=== PATIENT | female | born 1955 | race Caucasian/White ===

== ENCOUNTER 2016-12-25 08:43 | Emergency (ER) | payer MEDICARE ==
[~2016-12-25] VITALS: Ht 154.9 cm; Wt 53.0 kg
[~2016-12-25 08:43] MED LIST: ASPI-614 PO; CEFD300C37 PO; CIPR250T27 PO; CLOP75TA PO; DOXY50CA42 PO; FLUO10CA7 PO; LORA1TAB PO; LOSA100T6 PO; MULT-717 PO; POTA20TA14 PO; PRED10TA PO; SIMV5TAB5 PO; SUCR1ORA11 PO; THIA100T6 PO
[2016-12-25 09:58] LABS: IS PT STATUS REG ER OR PRE ER? YES
[2016-12-25 10:51] VITALS: BP 126/72
== END 2016-12-25 12:24 | disposition home or self-care (01) ==
LOC: ED 09:29
DX: I63.9 Cerebral infarction, unspecified (principal); J44.1 Chronic obstructive pulmonary disease with (acute) exacerbation; I10 Essential (primary) hypertension; E78.5 Hyperlipidemia, unspecified
CPT/HCPCS: 36415; 70450; 70551; 80047; 82962; 83880; 84484; 85025; 85610; 85730; 93005; 99285

== ENCOUNTER 2018-01-10 09:27 | Inpatient (IN) | payer OTHER ==
[~2018-01-10] VITALS: Ht 154.9 cm; Wt 49.3 kg
[~2018-01-10 09:27] MED LIST changes: +ASPI-496 PO; +CHOL20002 PO; +MELO15TA24 PO; +OMEP-110 PO
[2018-01-10] MEDS ORDERED: ASPI-496 PO (09:56)
[2018-01-10] MEDS ORDERED: MELO15TA24 PO (09:56)
[2018-01-10] MEDS ORDERED: CLOP75TA PO (09:56)
[2018-01-10] MEDS ORDERED: ONDANSETRON ODT 4 MG PO ONE (10:00)
[2018-01-10] MEDS ORDERED: SODIUM CHLORIDE FLUSH 10ML SYR IVF ONE (10:00)
[2018-01-10] MEDS ORDERED: MORPHINE SULFATE 4 MG/ML, 1ML IVPush PRN (10:00)
[2018-01-10 10:20] LABS: BASOPHILS # (AUTO) 0.04 x10^3/uL (0-0.1); BASOPHILS % (AUTO) 1 % (0-1); EOSINOPHILS # (AUTO) 0.02 x10^3/uL (0-0.4); EOSINOPHILS % (AUTO) 1 % (1-7); LYMPHOCYTES # (AUTO) 1.56 x10^3/uL (1-3.4); LYMPHOCYTES % (AUTO) 33 % (22-44); MD NO; MEAN CORPUSCULAR HEMOGLOBIN 37.5 pg (27.0-34.8); MEAN CORPUSCULAR HGB CONC 34.6 g/dL (32.4-35.8); MEAN CORPUSCULAR VOLUME 108.4 fL (80-100); MEAN PLATELET VOLUME 6.3 fL (7.4-10.4); MONOCYTES # (AUTO) 0.71 x10^3/uL (0.2-0.8); MONOCYTES % (AUTO) 15 % (2-9); NEUTROPHILS # (AUTO) 2.43 x10^3/uL (1.8-6.8); NEUTROPHILS % (AUTO) 51 % (42-75); PLATELET COUNT 333 x10^3/uL (130-400); RED BLOOD COUNT 4.08 x10^6/uL (3.82-5.3); RED CELL DISTRIBUTION WIDTH 12.6 % (9.6-15.2)
[2018-01-10] MEDS ORDERED: ONDANSETRON ODT 4 MG ONE (10:23)
[2018-01-10] MEDS ORDERED: MORPHINE SULFATE 4 MG/ML, 1ML ONE (10:24)
[2018-01-10 10:36] LABS: INTERNATIONAL NORMALIZED RATIO 0.96 (0.93-1.1)
[2018-01-10 10:41] LABS: ALBUMIN 3.9 g/dL (3.4-5.0); ANION GAP 8 mmol/L (5-15); CHLORIDE 97 mmol/L (98-107)
[2018-01-10] MEDS ORDERED: OMNIPAQUE 350 MG/ML, 100ML BOTTLE ONE (10:43)
[2018-01-10 10:44] LABS: ALANINE AMINOTRANSFERASE 47 U/L (12-78); ALKALINE PHOSPHATASE 93 U/L (45-117); BILIRUBIN,TOTAL 0.6 mg/dL (0.2-1.0); CREATININE 0.67 mg/dL (0.55-1.02); TOTAL PROTEIN 7.1 g/dL (6.4-8.2)
[2018-01-10] MEDS ORDERED: CLOPIDOGREL 75 MG TABLET PO ONE (12:00)
[2018-01-10] MEDS ORDERED: ONDANSETRON ODT 4 MG PO PRN (13:00)
[2018-01-10] MEDS ORDERED: POLYETHYLENE GLYCOL 17 GM PACKET PO PRN (13:00)
[2018-01-10] MEDS ORDERED: OMEPRAZOLE 20 MG CAPSULE.DR PO SCH (13:00)
[2018-01-10] MEDS ORDERED: ENALAPRILAT 1.25 MG/ML, 2ML IV PRN (13:00)
[2018-01-10] MEDS ORDERED: DOCUSATE 100 MG CAPSULE PO PRN (13:00)
[2018-01-10] MEDS ORDERED: BISACODYL 10 MG SUPP PR PRN (13:00)
[2018-01-10 13:10] VITALS: BP 104/69
[2018-01-10] MEDS: NICOTINE 7 MG/24 HR PATCH.TD24 TD SCH (13:25)
[2018-01-10] MEDS: LORazepam 1MG TABLET PO PRN ×2 (13:25→21:41)
[2018-01-10 13:31] LABS: TROPONIN I < 0.015 ng/mL (0.000-0.045)
[2018-01-10 14:00] VITALS: BP 104/69
[2018-01-10 19:11] VITALS: BP 119/76
[2018-01-10] MEDS: ATORVASTATIN 40 MG TABLET PO SCH (20:35)
[2018-01-11 02:10] VITALS: BP 106/65
[2018-01-11 05:05] LABS: BASOPHILS # (AUTO) 0.03 x10^3/uL (0-0.1); BASOPHILS % (AUTO) 1 % (0-1); EOSINOPHILS # (AUTO) 0.07 x10^3/uL (0-0.4); EOSINOPHILS % (AUTO) 2 % (1-7); LYMPHOCYTES # (AUTO) 1.41 x10^3/uL (1-3.4); LYMPHOCYTES % (AUTO) 36 % (22-44); MD NO; MEAN CORPUSCULAR HGB CONC 34.5 g/dL (32.4-35.8); MEAN PLATELET VOLUME 6.4 fL (7.4-10.4); MONOCYTES # (AUTO) 0.49 x10^3/uL (0.2-0.8); MONOCYTES % (AUTO) 12 % (2-9); NEUTROPHILS # (AUTO) 1.97 x10^3/uL (1.8-6.8); NEUTROPHILS % (AUTO) 50 % (42-75); PLATELET COUNT 276 x10^3/uL (130-400); RED BLOOD COUNT 3.67 x10^6/uL (3.82-5.3); RED CELL DISTRIBUTION WIDTH 12.6 % (9.6-15.2)
[2018-01-11 05:16] LABS: CHLORIDE 102 mmol/L (98-107)
[2018-01-11 05:17] LABS: ANION GAP 7 mmol/L (5-15); CALCIUM 8.8 mg/dL (8.5-10.1); CHOLESTEROL, TOTAL 150 mg/dL (140-239); TRIGLYCERIDES 64 mg/dL (50-200); VLDL CHOLESTEROL 13 mg/dL (0-25)
[2018-01-11 05:43] LABS: CHOL/HDL RATIO 1.6; HDL CHOL % 61 % (28-40); HDL CHOLESTEROL (DIRECT) 92 mg/dL (40-60); LDL CHOLESTEROL,CALCULATED 45 mg/dL (54-169); LDL/HDL RATIO 0.5 (0.5-3.0)
[2018-01-11 05:44] LABS: FOLATE LEVEL > 20.0 ng/mL (3.1-17.5)
[2018-01-11 07:05] VITALS: BP 111/70
[2018-01-11] MEDS: OMEPRAZOLE 20 MG CAPSULE.DR PO SCH (08:25)
[2018-01-11] MEDS: FLUOXETINE 10 MG CAP PO SCH (08:25)
[2018-01-11] MEDS: MULTIVITAMIN 1 TABLET PO SCH (08:25)
[2018-01-11] MEDS: CHOLECALCIFEROL 1,000 UNIT TABLET PO SCH (08:25)
[2018-01-11] MEDS: ASPIRIN 81 MG TABLET CHEW PO/NG SCH (08:26)
[2018-01-11] MEDS: CLOPIDOGREL 75 MG TABLET PO SCH (08:26)
[2018-01-11] MEDS ORDERED: POTASSIUM CHLORIDE 20 MEQ TAB.ER.PRT PO ONE (08:30)
[2018-01-11] MEDS: ACETAMINOPHEN 325 MG TABLET PO PRN (10:34)
[2018-01-11] MEDS: LORazepam 1MG TABLET PO PRN ×2 (10:35→20:11)
[2018-01-11] MEDS: NICOTINE 7 MG/24 HR PATCH.TD24 TD SCH (13:05)
[2018-01-11 13:11] VITALS: BP_SYST 148; BP_SYST 93; BP_DIAS 58; BP_DIAS 91
[2018-01-11 19:57] VITALS: BP 112/71
[2018-01-11] MEDS: ATORVASTATIN 40 MG TABLET PO SCH (20:10)
[2018-01-12 02:30] VITALS: BP 119/72
[2018-01-12 05:02] LABS: BASOPHILS # (AUTO) 0.02 x10^3/uL (0-0.1); BASOPHILS % (AUTO) 1 % (0-1); EOSINOPHILS # (AUTO) 0.08 x10^3/uL (0-0.4); EOSINOPHILS % (AUTO) 2 % (1-7); LYMPHOCYTES # (AUTO) 1.47 x10^3/uL (1-3.4); LYMPHOCYTES % (AUTO) 33 % (22-44); MD NO; MEAN CORPUSCULAR HEMOGLOBIN 37.5 pg (27.0-34.8); MEAN CORPUSCULAR HGB CONC 34.4 g/dL (32.4-35.8); MEAN CORPUSCULAR VOLUME 109.1 fL (80-100); MEAN PLATELET VOLUME 6.2 fL (7.4-10.4); MONOCYTES # (AUTO) 0.52 x10^3/uL (0.2-0.8); MONOCYTES % (AUTO) 12 % (2-9); NEUTROPHILS # (AUTO) 2.37 x10^3/uL (1.8-6.8); NEUTROPHILS % (AUTO) 53 % (42-75); PLATELET COUNT 283 x10^3/uL (130-400); RED BLOOD COUNT 3.77 x10^6/uL (3.82-5.3); RED CELL DISTRIBUTION WIDTH 12.7 % (9.6-15.2)
[2018-01-12 05:16] LABS: ANION GAP 8 mmol/L (5-15); CALCIUM 8.7 mg/dL (8.5-10.1); CHLORIDE 105 mmol/L (98-107); CREATININE 0.49 mg/dL (0.55-1.02)
[2018-01-12 06:54] VITALS: BP 126/80
[2018-01-12] MEDS: MULTIVITAMIN 1 TABLET PO SCH (10:34)
[2018-01-12] MEDS: FLUOXETINE 10 MG CAP PO SCH (10:34)
[2018-01-12] MEDS: CLOPIDOGREL 75 MG TABLET PO SCH (10:34)
[2018-01-12] MEDS: ASPIRIN 81 MG TABLET CHEW PO/NG SCH (10:34)
[2018-01-12] MEDS: CHOLECALCIFEROL 1,000 UNIT TABLET PO SCH (10:34)
[2018-01-12] MEDS: OMEPRAZOLE 20 MG CAPSULE.DR PO SCH (10:34)
[2018-01-12] MEDS: LORazepam 1MG TABLET PO PRN ×2 (10:43→20:38)
[2018-01-12 13:03] VITALS: BP 125/74
[2018-01-12] MEDS: NICOTINE 7 MG/24 HR PATCH.TD24 TD SCH (15:35)
[2018-01-12 20:00] VITALS: BP 132/79
[2018-01-12] MEDS: ACETAMINOPHEN 325 MG TABLET PO PRN (20:38)
[2018-01-12] MEDS: ATORVASTATIN 40 MG TABLET PO SCH (20:38)
[2018-01-13 04:07] VITALS: BP 151/84
[2018-01-13 07:19] VITALS: BP 135/79
[2018-01-13] MEDS: CLOPIDOGREL 75 MG TABLET PO SCH (09:27)
[2018-01-13] MEDS: CHOLECALCIFEROL 1,000 UNIT TABLET PO SCH (09:27)
[2018-01-13] MEDS: ASPIRIN 81 MG TABLET CHEW PO/NG SCH (09:27)
[2018-01-13] MEDS: MULTIVITAMIN 1 TABLET PO SCH (09:27)
[2018-01-13] MEDS: FLUOXETINE 10 MG CAP PO SCH (09:27)
[2018-01-13] MEDS: OMEPRAZOLE 20 MG CAPSULE.DR PO SCH (09:27)
[2018-01-13] MEDS: LORazepam 1MG TABLET PO PRN ×2 (09:27→20:26)
[2018-01-13] MEDS: NICOTINE 7 MG/24 HR PATCH.TD24 TD SCH (14:30)
[2018-01-13 15:00] VITALS: BP 115/73
[2018-01-13 20:00] VITALS: BP 110/71
[2018-01-13] MEDS: ATORVASTATIN 40 MG TABLET PO SCH (20:26)
[2018-01-14 02:00] VITALS: BP 125/77
[2018-01-14 07:07] VITALS: BP 116/73
[2018-01-14] MEDS: CHOLECALCIFEROL 1,000 UNIT TABLET PO SCH (09:56)
[2018-01-14] MEDS: OMEPRAZOLE 20 MG CAPSULE.DR PO SCH (09:56)
[2018-01-14] MEDS: MULTIVITAMIN 1 TABLET PO SCH (09:56)
[2018-01-14] MEDS: FLUOXETINE 10 MG CAP PO SCH (09:56)
[2018-01-14] MEDS: ASPIRIN 81 MG TABLET CHEW PO/NG SCH (09:56)
[2018-01-14] MEDS: CLOPIDOGREL 75 MG TABLET PO SCH (10:02)
[2018-01-14] MEDS: LORazepam 1MG TABLET PO PRN ×2 (10:02→19:02)
[2018-01-14 14:14] VITALS: BP 143/82
[2018-01-14] MEDS: NICOTINE 7 MG/24 HR PATCH.TD24 TD SCH (14:35)
[2018-01-14 18:53] VITALS: BP 113/72
[2018-01-14] MEDS: ATORVASTATIN 40 MG TABLET PO SCH (20:20)
[2018-01-15 02:33] VITALS: BP 110/67
[2018-01-15] MEDS: ACETAMINOPHEN 325 MG TABLET PO PRN ×2 (04:20→17:42)
[2018-01-15 08:00] VITALS: BP 109/73
[2018-01-15] MEDS: CLOPIDOGREL 75 MG TABLET PO SCH (08:55)
[2018-01-15] MEDS: ASPIRIN 81 MG TABLET CHEW PO/NG SCH (08:55)
[2018-01-15] MEDS: OMEPRAZOLE 20 MG CAPSULE.DR PO SCH (08:56)
[2018-01-15] MEDS: CHOLECALCIFEROL 1,000 UNIT TABLET PO SCH (08:56)
[2018-01-15] MEDS: FLUOXETINE 10 MG CAP PO SCH (08:57)
[2018-01-15] MEDS: MULTIVITAMIN 1 TABLET PO SCH (08:58)
[2018-01-15] MEDS: LORazepam 1MG TABLET PO PRN (08:59)
[2018-01-15] MEDS ORDERED: PAPAVERINE 30 MG/ML, 2ML ONE (12:54)
[2018-01-15] MEDS ORDERED: BUPIVACAINE/PF-EPI 0.5% 1:200K ONE (12:54)
[2018-01-15] MEDS ORDERED: THROMBIN 20,000 UNIT VIAL TP ONE ×2 (12:54→15:58)
[2018-01-15] MEDS ORDERED: HEPARIN 1,000 UNITS/ML, 10ML ONE (12:54)
[2018-01-15] MEDS ORDERED: PROTAMINE SULFATE 10 MG/ML, 5ML ONE (12:54)
[2018-01-15] MEDS ORDERED: BACITRACIN 50,000 UNIT ONE (12:55)
[2018-01-15] MEDS ORDERED: LIDOCAINE-MPF 1%, 5ML ONE (12:55)
[2018-01-15 14:00] VITALS: BP 111/68
[2018-01-15] MEDS ORDERED: FENTANYL PF 250 MCG/5ML ONE (14:41)
[2018-01-15] MEDS ORDERED: LIDOCAINE GEL 2%, 5ML ONE (14:44)
[2018-01-15] MEDS ORDERED: SUCCINYLCHOLINE 20 MG/ML, 10ML ONE (15:14)
[2018-01-15] MEDS ORDERED: PHENYLEPHRINE 10 MG/ML ONE (15:14)
[2018-01-15] MEDS ORDERED: BACITRACIN 50,000 UNIT IRRIG ONE (15:57)
[2018-01-15] MEDS ORDERED: BUPIVACAINE/PF-EPI 0.5% 1:200K INFIL ONE (15:58)
[2018-01-15] MEDS ORDERED: HEPARIN 1,000 UNITS/ML, 10ML IV ONE (15:59)
[2018-01-15] MEDS ORDERED: ACETAMINOPHEN 325 MG TABLET PO PRN (16:30)
[2018-01-15] MEDS ORDERED: PROMETHAZINE 25 MG/ML, 1ML IV PRN (16:30)
[2018-01-15] MEDS ORDERED: ALBUTEROL/IPRATROPIUM 2.5MG/0.5MG, 3 ML NPPB PRN (16:30)
[2018-01-15] MEDS ORDERED: HYDROmorphone 1 MG/ML, 1ML IV PRN (16:30)
[2018-01-15] MEDS ORDERED: MIDAZOLAM 1 MG/ML, 2ML IV PRN (16:30)
[2018-01-15] MEDS ORDERED: hydrALAzine 20 MG/ML, 1ML IV PRN (16:30)
[2018-01-15] MEDS ORDERED: ONDANSETRON 2MG/ML, 2ML IV PRN (16:30)
[2018-01-15] MEDS ORDERED: LABETALOL 5MG/ML, 20ML IV PRN (16:30)
[2018-01-15] MEDS ORDERED: OXYcodone 5 MG/5 ML ORAL.SOL UDC PO PRN (16:30)
[2018-01-15] MEDS ORDERED: ONDANSETRON 2MG/ML, 2ML ONE (16:45)
[2018-01-15] MEDS ORDERED: DEXAMETHASONE 4 MG/ML, 1ML ONE (16:45)
[2018-01-15] MEDS ORDERED: PROPOFOL 10 MG/ML, 20ML ONE (16:45)
[2018-01-15] MEDS ORDERED: CEFAZOLIN 1,000 MG ONE (16:45)
[2018-01-15] MEDS ORDERED: LABETALOL 5MG/ML, 20ML ONE (17:01)
[2018-01-15] MEDS: LABETALOL 5MG/ML, 20ML IV PRN ×2 (17:12→17:23)
[2018-01-15] MEDS ORDERED: FENTANYL PF 100 MCG/2ML ONE (17:38)
[2018-01-15] MEDS ORDERED: OXYcodone 5 MG/5 ML ORAL.SOL UDC ONE (17:38)
[2018-01-15] MEDS ORDERED: ACETAMINOPHEN 650 MG/20.3 ML UDC ONE (17:38)
[2018-01-15] MEDS: FENTANYL PF 100 MCG/2ML IV PRN ×2 (17:44→17:58)
[2018-01-15 19:25] VITALS: BP 150/87
[2018-01-15] MEDS ORDERED: MORPHINE SULFATE 4 MG/ML, 1ML IVPush PRN (21:00)
[2018-01-15] MEDS: ATORVASTATIN 40 MG TABLET PO SCH (21:00)
[2018-01-15] MEDS ORDERED: HYDROcodone/APAP 5/325 TABLET PO PRN (21:00)
[2018-01-16 02:20] VITALS: BP 117/71
[2018-01-16 07:49] VITALS: BP 118/77
[2018-01-16] MEDS: FLUOXETINE 10 MG CAP PO SCH (08:28)
[2018-01-16] MEDS: OMEPRAZOLE 20 MG CAPSULE.DR PO SCH (08:28)
[2018-01-16] MEDS: ASPIRIN 81 MG TABLET CHEW PO/NG SCH (08:28)
[2018-01-16] MEDS: CHOLECALCIFEROL 1,000 UNIT TABLET PO SCH (08:28)
[2018-01-16] MEDS: CLOPIDOGREL 75 MG TABLET PO SCH (08:29)
[2018-01-16] MEDS: MULTIVITAMIN 1 TABLET PO SCH (08:29)
[2018-01-16] MEDS: NICOTINE 7 MG/24 HR PATCH.TD24 TD SCH (08:29)
[2018-01-16] MEDS: LORazepam 1MG TABLET PO PRN (08:29)
[2018-01-16] MEDS ORDERED: MELOXICAM 15 MG TABLET PO SCH (09:00)
[2018-01-16] MEDS ORDERED: LOSARTAN 50MG TABLET PO SCH (09:00)
[2018-01-16] MEDS ORDERED: ASPI-515 PO/NG (13:19)
[2018-01-16] MEDS ORDERED: ATOR40TA78 PO (13:19)
[2018-01-16] MEDS ORDERED: CLOP75TA PO (13:25)
[2018-01-16 14:11] VITALS: BP 124/76
[2018-01-16] MEDS ORDERED: HYDR-3240 PO ×2 (15:27→15:28)
== END 2018-01-16 15:47 | disposition home or self-care (01) | DRG 38 ==
LOC: ED 10:57 → EDIP 11:20 → 4WST 13:05 → DCLOUNGE 01-16 15:08
PROVIDERS: ADMIT Hospitalist; ATTEND Hospitalist
PROC: 03CM0ZZ Extirpation of Matter from Right External Carotid Artery, Open Approach (ICD-10-PCS; 2018-01-15)
PROC: 03CK0ZZ Extirpation of Matter from Right Internal Carotid Artery, Open Approach (ICD-10-PCS; 2018-01-15)
PROC: 03CH0ZZ Extirpation of Matter from Right Common Carotid Artery, Open Approach (ICD-10-PCS; principal; 2018-01-15 16:30)
DX: I65.23 Occlusion and stenosis of bilateral carotid arteries (principal); E87.1 Hypo-osmolality and hyponatremia; I65.02 Occlusion and stenosis of left vertebral artery; Z91.81 History of falling; F17.200 Nicotine dependence, unspecified, uncomplicated; F12.90 Cannabis use, unspecified, uncomplicated; F10.10 Alcohol abuse, uncomplicated; Z88.6 Allergy status to analgesic agent; Z91.030 Bee allergy status; Y90.9 Presence of alcohol in blood, level not specified; D75.89 Other specified diseases of blood and blood-forming organs; G93.89 Other specified disorders of brain; I10 Essential (primary) hypertension; J44.9 Chronic obstructive pulmonary disease, unspecified; R32 Unspecified urinary incontinence; Z66 Do not resuscitate; Z80.8 Family history of malignant neoplasm of other organs or systems; Z82.49 Family history of ischemic heart disease and other diseases of the circulatory system; Z87.19 Personal history of other diseases of the digestive system
CPT/HCPCS: 36415; 70450; 70496; 70498; 70551; 71045; 80048; 80053; 80061; 82607; 82746; 82962; 83735; 84100; 84443; 84484; 85025; 85610; 86850; 86900; 93005; 93306; 95938; 95941; 96374; 99285; C1729; J0690; J1100; J1644; J2405; J2704; J2720; J3010; Q0162; Q9967; 92523-GN; C1768; J0330; J2370; J2440